=== PATIENT | male | born 1960 | race African-American/Black ===

== ENCOUNTER 2019-09-25 17:37 | Emergency (ER) | payer BC ==
--- NOTE | 2019-09-25 17:45 | PDOC ---
Rapid Medical Evaluation Time Seen by Provider: 09/25/19 17:44 Medical Evaluation: 09/25/19 17:44 I performed a brief in-person evaluation of this patient. Healthy 59-year-old male smoker presenting with nasal congestion, headache, left ear tinnitus. Pertinent physical exam findings: Alert, oriented, no distress. Afebrile. BP 183/73. I have ordered the following: None. Patient will proceed to FT for further evaluation. Discharge Disposition - Diagnosis Ear pain, left - Discharge Dispostion Condition at time of disposition: Stable - Referrals - Patient Instructions - Post Discharge Activity
[2019-09-25 17:57] VITALS: BP 183/73; PULSE 60; TEMP 98; BMI 35.2
--- NOTE | 2019-09-25 18:34 | PDOC ---
History of Present Illness - General Chief Complaint: Ear Problem Stated Complaint: EAR ACHE Time Seen by Provider: 09/25/19 17:44 History Source: Patient Exam Limitations: Clinical Condition - History of Present Illness Initial Comments: 09/25/19 18:36 Patient with no significant past medical history present with complaint of left ear pain, nasal congestion, ringing sensation left ear and popping sensation left ear for 3 days. Patient reported left ear pain keeps him up at night. Denies decreased hearing. Patient did not take anything for symptoms. Patient also requests refill of his Cialis medication that has been taking at home Is this a multiple visit Asthma Patient?: No Timing/Duration: other (3 days) Past History - Past Medical History Allergies/Adverse Reactions: Allergies Allergy/AdvReac Type Severity Reaction Status Date / Time No Known Allergies Allergy Verified 09/25/19 17:48 Home Medications: Ambulatory Orders Methylprednisolone [Medrol Dose Lenny] 4 mg PO ASDIR #21 tablet 09/25/19 Neomycin/Polymyxin B/Hydrocort [Lxiaufay-Estiffoya-Ob Ear Susp] 4 drop Q6H 5 Days #1 bottle 09/25/19 Tadalafil [Cialis] 20 mg PO DAILY #20 tab 09/25/19 - Psycho Social/Smoking Cessation Hx Smoking History: Never smoked Have you smoked in the past 12 months: No Information on smoking cessation initiated: No Hx Alcohol Use: No Drug/Substance Use Hx: No Review of Systems - Review of Systems Able to Perform ROS?: Yes Is the patient limited Icelandic proficient: No Constitutional: No: Chills, Fever, Malaise HEENTM: Yes: Symptoms Reported, See HPI, Ear Pain (left ear pain). No: Eye Pain , Blurred Vision, Tearing, Recent change in vision, Double Vision, Cataracts, Ocular Prothesis, Ear Discharge, Nose Pain, Nose Congestion, Tinnitus, Nose Bleeding, Hearing Loss, Throat Pain, Throat Swelling, Mouth Pain, Dental Problems, Difficulty Swallowing, Mouth Swelling, Other Respiratory: No: Symptoms reported, See HPI, Cough, Orthopnea, Shortness of Breath, SOB with Exertion, SOB at Rest, Stridor, Wheezing, Productive cough, Hemoptysis, Other Cardiac (ROS): No: Symptoms Reported, See HPI, Chest Pain, Edema, Irregular Heart Rate, Lightheadedness, Palpitations, Syncope, Chest Tightness, Other ABD/GI: No: Symptoms Reported, Nausea, Vomiting Musculoskeletal: No: Symptoms Reported Integumentary: No: Symptoms Reported Neurological: No: Symptoms reported, Headache, Numbness, Dizziness All Other Systems: Reviewed and Negative *Physical Exam - Vital Signs Last Vital Signs Temp Pulse Resp BP Pulse Ox 98.0 F 60 18 183/73 H 99 09/25/19 17:45 09/25/19 17:45 09/25/19 17:45 09/25/19 17:45 09/25/19 17:45 - Physical Exam General Appearance: Yes: Nourished, Appropriately Dressed. No: Apparent Distress HEENT: positive: CHRISTIAN, Normal ENT Inspection, Normal Voice, Pharynx Normal, Hearing Grossly Normal Neck: positive: Supple Respiratory/Chest: positive: Lungs Clear, Normal Breath Sounds. negative: Respiratory Distress, Accessory Muscle Use Cardiovascular: positive: Regular Rhythm, Regular Rate Musculoskeletal: positive: Normal Inspection Extremity: positive: Normal Inspection Integumentary: positive: Normal Color Neurologic: positive: Fully Oriented, Alert, Normal Mood/Affect, Normal Response Medical Decision Making - Medical Decision Making 09/25/19 18:38 Patient with no significant past medical history present with complaint of left ear pain, nasal congestion, ringing sensation left ear and popping sensation left ear for 3 days. Patient reported left ear pain keeps him up at night. Denies decreased hearing. Patient did not take anything for symptoms. Patient also requests refill of his Cialis medication that has been taking at home Clinical exam unremarkable with no erythema in ear canal. Bilateral nasal congestion on exam. Patient symptoms likely caused by otalgia from sinusitis. Patient stable for discharge on neomycin polymycin hydrocortisone eardrops for ear pain and Medrol Lenny for inflammatory of sinusitis with advised to increase fluid intake. Refill of Cialis medication sent in for patient. Patient stable for discharge 09/25/19 18:40 Patient with elevated blood pressure in the office by report no history of blood pressure and blood pressure is likely due to him feeling nervous due to his ear pain. Patient advised to do home blood pressure check and record blood pressure reading and follow-up with her primary care Discharge - Discharge Information Problems reviewed: Yes Clinical Impression/Diagnosis: Ear pain, left, Nasal sinus congestion, Elevated blood-pressure reading without diagnosis of hypertension Condition: Stable Disposition: HOME - Additional Discharge Information Prescriptions: Methylprednisolone [Medrol Dose Lenny] 4 mg PO ASDIR #21 tablet Neomycin/Polymyxin B/Hydrocort [Ecjbzquo-Uaxfihrre-Fv Ear Susp] 4 drop Q6H 5 Days #1 bottle Tadalafil [Cialis] 20 mg PO DAILY #20 tab - Follow up/Referral Referrals: Hieu Gasca MD [Staff Physician] - - Patient Discharge Instructions Patient Printed Discharge Instructions: DI for Sinusitis Additional Instructions: Take prescribed medication as prescribed for ear pain and nasal congestion. Follow-up referred ENT DrShashi if no improvement in 3 days - Post Discharge Activity
== END 2019-09-25 18:38 | disposition home or self-care (01) ==
LOC: JERFT 17:37
DX: J01.90 Acute sinusitis, unspecified (principal); H92.02 Otalgia, left ear; H93.11 Tinnitus, right ear; R03.0 Elevated blood-pressure reading, without diagnosis of hypertension
CPT/HCPCS: 99281-25